=== PATIENT | female | born 1995 | race African-American/Black ===

== ENCOUNTER 2023-05-30 23:38 | Emergency (ER) | payer OTHER ==
[~2023-05-30] VITALS: Ht 157.5 cm; Wt 52.3 kg
[2023-05-30 23:43] VITALS: BP 118/64; PULSE 98; RESP 16; TEMP 98.2
[2023-05-31] MEDS ORDERED: KETOROLAC TROMETHAMINE 30 MG/ML VIAL IM ONE (03:00)
[2023-05-31] MEDS ORDERED: METH-812 PO (03:04)
[2023-05-31] MEDS ORDERED: IBUP-1492 PO (03:04)
[2023-05-31] MEDS: KETOROLAC TROMETHAMINE 60 MG/2 ML VIAL IM ONE (03:14)
== END 2023-05-31 03:21 | disposition home or self-care (01) ==
LOC: EMS 23:39
DX: S13.4XXA Sprain of ligaments of cervical spine, initial encounter (principal); F12.90 Cannabis use, unspecified, uncomplicated; V89.2XXA Person injured in unspecified motor-vehicle accident, traffic, initial encounter; Y93.89 Activity, other specified; Y92.89 Other specified places as the place of occurrence of the external cause; Y99.8 Other external cause status
CPT/HCPCS: 99285; 70450; 72125; 96372; J1885